=== PATIENT | male | born 1955 | race Caucasian/White ===

== ENCOUNTER → 2017-10-20 | Outpatient (CLI) | payer OTHER ==
[~2017-10-20] MED LIST: ANTIHISTAMINE25 M2 PO; COZAAR50 MG PO; Coumadin,Jantoven PO; EXFORGE 10/11 TABLET PO; Flovent Diskus 50 mc IH; LEXAPRO20 MG PO; Mobic PO; NEURONTIN300 MG PO; NORVASC10 MG PO; PANTOPRAZOLE SO40 MG PO; PRILOSEC OTC20 MG PO; ValTRex PO; ZYRTEC10 M3 PO; predniSONE PO
== END | disposition home or self-care (01) ==
LOC: CT 18:30
DX: N13.2 Hydronephrosis with renal and ureteral calculous obstruction (principal)
CPT/HCPCS: 74176

== ENCOUNTER 2017-10-21 02:00 | Inpatient (IN) | payer OTHER ==
[~2017-10-21] VITALS: Ht 172.7 cm; Wt 93.0 kg
[~2017-10-21 02:00] MED LIST changes: -LEXAPRO20 MG PO; -NORVASC10 MG PO; -PANTOPRAZOLE SO40 MG PO; -ZYRTEC10 M3 PO
[2017-10-21 02:38] LABS: HEMATOCRIT 37.7 % (38.0-50.0); MCH 30.7 PG (29.0-34.0); MCHC 34.5 G/DL (30.0-36.0); MCV 88.9 FL (86-99); PLATELET COUNT 286 K/uL (156-360); RBC DIS.WIDTH-CV 12.8 % (11.8-14.6); RBC DIS.WIDTH-SD 41.8 % (39-53); RED BLOOD COUNT 4.24 M/uL (4.00-5.50); WHITE BLOOD COUNT 10.9 K/uL (4.1-10.2)
[2017-10-21 02:45] LABS: APPEARANCE CLEAR ((CLEAR)); BILIRUBIN NEGATIVE; BLOOD NEGATIVE; COLOR YELLOW ((YELLOW)); GLUCOSE (STRIP) NEGATIVE; KETONES 5; LEUKOCYTES NEGATIVE; NITRITE NEGATIVE; PROTEIN (STRIP) NEGATIVE; SPECIFIC GRAVITY 1.014 (1.000-1.030); UCUL ADDED? NO; UROBILINOGEN 0.2 MG/DL (0.2-1.0)
[2017-10-21 02:58] LABS: CHLORIDE 103 mEq/L (99-109); POTASSIUM 3.6 mEq/L (3.7-5.4); SODIUM 140 mEq/L (136-147)
[2017-10-21 02:59] LABS: GLUCOSE 116 mg/dL (70-99)
[2017-10-21 03:03] LABS: CREATININE 1.9 mg/dL (0.6-1.3); GFR ESTIMATE (CALCULATED) 39 mL/min/ (58.99-99999)
[2017-10-21 03:04] LABS: UREA NITROGEN (BUN) 19 mg/dL (9-23)
[2017-10-21 04:50] VITALS: BP 131/84
[2017-10-21 08:16] VITALS: BP 131/85
[2017-10-21 12:22] VITALS: BP 120/63
[2017-10-21] MEDS ORDERED: LEXAPRO20 MG PO (12:55)
[2017-10-21] MEDS ORDERED: NORVASC10 MG PO (12:55)
[2017-10-21] MEDS ORDERED: PANTOPRAZOLE SO40 MG PO (12:55)
[2017-10-21] MEDS ORDERED: ZYRTEC10 M3 PO (12:57)
[2017-10-21 17:41] VITALS: BP 122/76
[2017-10-21 19:48] VITALS: BP 109/59
[2017-10-22] VITALS: BP 110/80
[2017-10-22 04:47] VITALS: BP 109/59
[2017-10-22 06:13] LABS: BASOPHIL (%) 0.3 % (0-1); EOSINOPHIL (%) 3.7 % (0-5); EOSINOPHIL COUNT 0.3 K/uL (0-0.3); HEMATOCRIT 34.4 % (38.0-50.0); HEMOGLOBIN 11.1 G/DL (12.5-16.6); IMMATURE GRANULOCYTE (%) 0.1 % (0.0-0.7); LYMPHOCYTE (%) 29.4 % (15-42); LYMPHOCYTE COUNT 2.2 K/uL (1.0-2.8); MCH 29.6 PG (29.0-34.0); MCHC 32.3 G/DL (30.0-36.0); MCV 91.7 FL (86-99); MONOCYTE (%) 11.2 % (3-12); MONOCYTE COUNT 0.8 K/uL (0-0.8); NEUTROPHIL (%) 55.3 % (45-76); NEUTROPHIL COUNT 4.1 K/uL (1.8-6.4); PLATELET COUNT 259 K/uL (156-360); RBC DIS.WIDTH-CV 12.8 % (11.8-14.6); RBC DIS.WIDTH-SD 42.6 % (39-53); RED BLOOD COUNT 3.75 M/uL (4.00-5.50); WHITE BLOOD COUNT 7.3 K/uL (4.1-10.2)
[2017-10-22 06:38] LABS: CHLORIDE 106 MEQ/L (99-109); GFR ESTIMATE (CALCULATED) > 59 mL/min/ (58.99-99999); GLUCOSE 104 mg/dL (70-99); POTASSIUM 3.9 MEQ/L (3.7-5.4); SODIUM 138 MEQ/L (136-147); UREA NITROGEN (BUN) 14 mg/dL (9-23)
[2017-10-22 06:40] LABS: CREATININE 1.3 MG/DL (0.6-1.3)
[2017-10-22 07:59] VITALS: BP 136/76
[2017-10-22 13:28] VITALS: BP 107/64
[2017-10-22 17:55] VITALS: BP 128/71
[2017-10-22 18:56] VITALS: BP 110/72
== END 2017-10-22 20:07 | disposition home or self-care (01) | DRG 694 ==
LOC: EME 02:00 → EDOF 03:38 → ENRESERV 03:39 → 4SOUTH 04:44
PROVIDERS: Emergency Medicine; Internal Medicine; Physician Assistant Medical
DX: N13.2 Hydronephrosis with renal and ureteral calculous obstruction (principal); N17.9 Acute kidney failure, unspecified; K21.9 Gastro-esophageal reflux disease without esophagitis; E66.3 Overweight; Z68.31 Body mass index [BMI] 31.0-31.9, adult; I10 Essential (primary) hypertension; Z87.891 Personal history of nicotine dependence; Z86.718 Personal history of other venous thrombosis and embolism; Z89.022 Acquired absence of left finger(s); Z89.021 Acquired absence of right finger(s); E78.5 Hyperlipidemia, unspecified; Z87.442 Personal history of urinary calculi
CPT/HCPCS: 74176; 80048; 81003; 82365 90; 85025; 85027; 99281; 99285; C1758; G0378; J1650; J1956; J2405; J3010; J7030